=== PATIENT | male | born 1985 | race Caucasian/White ===

== ENCOUNTER → 2024-01-08 12:26 | Outpatient (CLI) | payer OTHER, SELFPAY ==
--- NOTE | 2024-01-08 | DI.CT.S_ITS ---
PROCEDURE: CT LUMBAR SPINE WO CON INDICATIONS: degenerative disc lumbar TECHNIQUE: Noncontrast 3 mm thick sections acquired from the T12 level to the sacrum. Sagittal and coronal reformats were constructed. For radiation dose reduction, the following was used: automated exposure control. COMPARISON: None. FINDINGS: Image quality: Excellent. Bones: Osteopenia. There is normal bony alignment. No acute vertebral body compression fractures. No suspicious lytic or blastic bony lesions. No pars defects. T12-L1: No severe bony central canal or foraminal stenosis. L1-L2: Small curvilinear disc osteophyte along the right paracentral disc (3/34). No severe bony central canal or foraminal stenosis. L2-L3: No severe bony central canal or foraminal stenosis. L3-L4: Mild central canal stenosis secondary to disc bulge and ligamentum flavum hypertrophy L4-L5: Mild central canal stenosis secondary to disc bulge and ligamentum flavum hypertrophy. Mild bilateral foraminal stenosis. L5-S1: Disc bulge with mild disc height loss. No severe central canal stenosis. Mild bilateral foraminal stenosis. Soft tissues: No retroperitoneal masses or hematomas. Visualized aorta is normal in caliber. Mild aortoiliac atherosclerosis. Right adrenal dystrophic calcifications, likely secondary to prior hemorrhage, infection, or trauma (4/8). IMPRESSION: 1. No severe bony central canal or foraminal stenosis. 2. Generalized osteopenia and aortic atherosclerosis, which are unexpected for the patient's age. The differential diagnosis is wide and would include underlying an underlying metabolic etiology. Correlation with serum markers for calcium, phosphate, and parathyroid hormone recommended. Dictated by: Charlie Rod M.D. on 01/08/2024 at 16:19 Approved by: Charlie Rod M.D. on 01/08/2024 at 16:38
== END ==
PROVIDERS: Referring Provider Nurse Practitioner Family; Visit Provider Nurse Practitioner Family
DX: M51.36 Other intervertebral disc degeneration, lumbar region (principal); I70.0 Atherosclerosis of aorta; M85.88 Other specified disorders of bone density and structure, other site
CPT/HCPCS: 72131

== ENCOUNTER 2024-07-09 07:56 | Emergency (ER) | payer OTHER, SELFPAY ==
[2024-07-09 08:06] VITALS: BP 186/124; PULSE 70; RESP 20; TEMP 37; O2SAT 100; BMI 69.0
--- NOTE | 2024-07-09 08:16 | PC.NURSE ---
Pt came to ED today because he was getting out of bed today and fell due to 8/10 sharp lumbar back pain that shoots down his left leg. Pt has chronic back pain issues, but states that it is getting worse and affecting his quality of life. Had spinal injections done in February 2024. Denies any numbness, tingling, loss of bowel/bladder control. Ambulates with steady gait. States that it is most comfortable for him to lay flat. A&Ox4.
--- NOTE | 2024-07-09 08:47 | DI.RAD.S_ITS ---
PROCEDURE: XR LUMBAR SPINE 2-3V INDICATIONS: back pain TECHNIQUE: 3 views of the lumbar spine were acquired. COMPARISON: [facility], CT, CT LUMBAR SPINE WO CON, 01/08/2024, 12:37. FINDINGS AND IMPRESSION: No acute vertebral body height loss or traumatic subluxation. Nonspecific heterogeneous appearance of the marrow space as before. No suspicious soft tissue calcifications. If there is high concern for further derangement, consider MRI evaluation. Dictated by: Ildefonso Mcmahan M.D. on 07/09/2024 at 9:03 Approved by: Ildefonso Mcmahan M.D. on 07/09/2024 at 9:05
[2024-07-09] MEDS: KETOROLAC 30 MG/ML VIAL 15 MG IV (09:06)
[2024-07-09] MEDS: HYDROMORPHONE 1 MG INJ IV (09:06)
[2024-07-09] MEDS: ONDANSETRON 4 MG/2 ML INJ IV (09:07)
--- NOTE | 2024-07-09 09:08 | ED.BACK ---
HPI - Back Pain/Injury General Chief Complaint: Back Pain/Injury Stated Complaint: Fell this morning lower back pain Time Seen by Provider: 07/09/24 08:28 Source: patient History of Present Illness HPI Narrative: Patient here with spouse. Complains of lower back pain. Does radiate to the left hip area. No loss of bowel bladder control. No incontinence or retention. No saddle paresthesia. No numbness tingling or weakness of the legs or feet. Patient was trying to get out of bed this morning and had back pain and he fell forward. Denies any injury from the fall. Patient over 10 years ago had L4-L5 diskectomy at [facility]. He has appointment with his neurosurgeon tomorrow by teleconference. Six months ago he did have MRI of the lower back. He did have epidural shot last fall as well. His recurrent lower back pain. In the past 3 weeks has had back pain without any injury or new events. No urinary changes. Blood pressure noted. Patient denies any fever chills. Is not on any immunosuppression. No history of diabetes. Related Data Previous Rx's Medication Instructions Recorded baclofen 20 mg tablet 20 mg PO TID PRN pain (scale score 07/09/24 4-6) #20 tabs ibuprofen 800 mg tablet 800 mg PO Q8H PRN pain #20 tabs 07/09/24 methylprednisolone 4 mg tablets in See Rx Instructions PO .COMPLEX 07/09/24 a dose pack (Medrol (Oscar)) #21 ea Allergies Allergy/AdvReac Type Severity Reaction Status Date / Time No Known Drug Allergies Allergy Verified 07/09/24 09:00 Review of Systems Review of Systems Narrative: GENERAL: Negative chills, fatigue, malaise, fever, sweats. HEENT: Negative sinus pain, ear pain, sore throat RESPIRATORY: Negative dyspnea, cough CARDIOVASCULAR: Negative chest pain, palpitations GASTROINTESTINAL: Negative vomiting, nausea, abdominal pain : Negative dysuria, frequency, hematuria MUSCULOSKELETAL: Positive back/muscle negative bony pain SKIN: Negative rash, skin lesions NEUROLOGIC: Negative weakness, numbness ROS Unobtainable: All systems reviewed & are unremarkable except as noted in HPI and below Patient History Social History Smoking Status: Never smoker Smoking Status: Never smoker Exam Narrative Exam Narrative: GENERAL: in no distress, not toxic not dyspneic HEAD: Normocephalic. EYES: Pupils equal round ENT: Mucous membranes moist. NECK: Trachea midline. CARDIOVASCULAR: Regular rate and rhythm RESPIRATORY: Clear to auscultation. Breath sounds equal bilaterally. No wheezes, rales, or rhonchi. GASTROINTESTINAL: Abdomen soft, non-tender EXTREMITIES: No gross deformities. BACK: No flank tenderness. There is reproducible bilateral paralumbar muscle tenderness. No midline tenderness or step-off. Increase straight leg raise on the left at 30?, on the right leg 45?. Strong bilateral patellar reflexes and ankle flexion-extension. Light touch intact to bilateral legs. Patient is able to log roll left and right in bed. NEURO: AOx4. Clear speech SKIN: Warm and dry PSYCH: Not anxious, is cooperative Initial Vital Signs Initial Vital Signs: Vital Signs Temperature 98.6 F 07/09/24 08:06 Pulse Rate 70 07/09/24 08:06 Respiratory Rate 20 07/09/24 08:06 Blood Pressure 186/124 H 07/09/24 08:06 Pulse Oximetry 100 07/09/24 08:06 Oxygen Delivery Method Room Air 07/09/24 08:06 Course Orders Ordered: Discontinued Medications Dexamethasone (Dexamethasone 10 Mg/Ml Vial) 10 mg IV NOW ONE Stop: 07/09/24 10:24 Last Admin: 07/09/24 10:31 Dose: 10 mg Documented By: LINDA Hydromorphone HCl (Hydromorphone 1 Mg Inj) 1 mg IV NOW ONE Stop: 07/09/24 08:47 Last Admin: 07/09/24 09:06 Dose: 1 mg Documented By: LINDA Ketorolac Tromethamine (Ketorolac 30 Mg/Ml Vial) 15 mg IV NOW ONE Stop: 07/09/24 08:47 Last Admin: 07/09/24 09:06 Dose: 15 mg Documented By: LINDA Ondansetron HCl (Ondansetron 4 Mg/2 Ml Inj) 4 mg IV NOW ONE Stop: 07/09/24 08:47 Last Admin: 07/09/24 09:07 Dose: 4 mg Documented By: LINDA Vital Signs Vital signs: Vital Signs - 8 hr 07/09/24 08:06 07/09/24 10:09 07/09/24 10:10 Temperature 98.6 F Pulse Rate 70 Respiratory Rate 20 Blood Pressure 186/124 H 149/96 H Pulse Oximetry 100 100 Oxygen Delivery Method Room Air 07/09/24 10:10 Temperature Pulse Rate 72 Respiratory Rate Blood Pressure Pulse Oximetry 99 Oxygen Delivery Method [facility] - Back Pain/Injury Imaging Data X-ray lumbar spine: Radiologist's Impression: [address] [address] XRay Report Signed Patient: Raymond Engel Jr MR#: [id number] : 1985 Acct:[id number] Age/Sex: 39 / M Date of Service: 07/09/24 Loc: ED Accession Number: [id number] Procedure: XR lumbar spine 2-3V Ordering Provider: Robert Anton MD PROCEDURE: XR LUMBAR SPINE 2-3V INDICATIONS: back pain TECHNIQUE: 3 views of the lumbar spine were acquired. COMPARISON: [facility], CT, CT LUMBAR SPINE WO CON, 01/08/2024, 12:37. FINDINGS AND IMPRESSION: No acute vertebral body height loss or traumatic subluxation. Nonspecific heterogeneous appearance of the marrow space as before. No suspicious soft tissue calcifications. If there is high concern for further derangement, consider MRI evaluation. Dictated by: Ildefonso Mcmahan M.D. on 07/09/2024 at 9:03 Approved by: Ildefonso Mcmahan M.D. on 07/09/2024 at 9:05 [facility] Narrative Medical decision making narrative: Patient here with spouse. Complains of lower back pain. Does radiate to the left hip area. No loss of bowel bladder control. No incontinence or retention. No saddle paresthesia. No numbness tingling or weakness of the legs or feet. Patient was trying to get out of bed this morning and had back pain and he fell forward. Denies any injury from the fall. Patient over 10 years ago had L4-L5 diskectomy at [facility]. He has appointment with his neurosurgeon tomorrow by teleconference. Six months ago he did have MRI of the lower back. He did have epidural shot last fall as well. His recurrent lower back pain. In the past 3 weeks has had back pain without any injury or new events. No urinary changes. Blood pressure noted. Patient denies any fever chills. Is not on any immunosuppression. No history of diabetes. After history and exam, no blood work indicated this time. X-ray of lumbar spine will be ordered. Toradol Dilaudid Zofran will be ordered [facility] Medical records reviewed: CT from January 08, 2024 of lumbar spine. Differential considered: Includes but not limited to cord compression cauda equina exacerbation chronic back pain low back strain herniated disc Imaging studies independently reviewed: X-ray lumbar spine no acute bony finding Consultations: None indicated at this time Treatments: Toradol Dilaudid Zofran Re-evaluations: Reviewed with patient and . I do not see an MRI from last year I do see CT imaging. 10:30 a.m.. Updated patient and and parents at bedside results. Pain is much better. He is able to raise his leg without pain. Return precautions reviewed. He will need outpatient MRI and physical therapy with his providers. Work note provided. Return precautions reviewed. Pain is controlled. They desire discharge home Discussion: Appropriate for discharge home exam is reassuring. Return precautions reviewed with patient and family. No MRI indicated this time. No neuro deficits. Return precautions reviewed patient and family. Work note provided. Pain is controlled. Prescriptions provided. They desire discharge home. Diagnosis: Acute exacerbation of chronic back pain Discharge Plan Departure Patient Disposition: Home Clinical Impression: Acute exacerbation of chronic low back pain Instructions: DI for Low Back Pain Activity Restrictions/Additional Instructions: No driving operating machine today as you have been given pain medication by IV. A steroid was also given by IV. Please continue steroid pack tomorrow. Prescriptions have been sent to your pharmacy to hand picker. See your neurosurgeon tomorrow as scheduled. Work note has been provided for you. Return if worse if any questions or concerns. You may need referral for physical therapy and MRI of your lower back by your family doctor or your surgeon. Prescriptions: New ibuprofen 800 mg tablet 800 mg PO Q8H PRN (Reason: pain) Qty: 20 0RF baclofen 20 mg tablet 20 mg PO TID PRN (Reason: pain (scale score 4-6)) Qty: 20 0RF methylprednisolone [Medrol (Oscar)] 4 mg tablets,dose pack See Rx Instructions .ROUTE .COMPLEX Qty: 21 0RF Rx Instructions: orally per package directions Stand Alone Forms: Patient Portal/API/Survey, Work Release Note
[2024-07-09 10:09] VITALS: O2SAT 100
[2024-07-09 10:10] VITALS: BP 149/96; PULSE 72; O2SAT 99
[2024-07-09] MEDS: DEXAMETHASONE 10 MG/ML VIAL IV (10:31)
[2024-07-09 10:43] VITALS: BP 153/104; PULSE 77; RESP 20; TEMP 37; O2SAT 100
== END 2024-07-09 10:46 | disposition home or self-care (01) ==
PROVIDERS: Emergency Provider Emergency Medicine
DX: M54.50 Low back pain, unspecified (principal); W19.XXXA Unspecified fall, initial encounter
CPT/HCPCS: 36415; 72100; 96374; 96375; 99284; J1100; J1171; J1885; J2405

== ENCOUNTER → 2024-07-23 07:05 | Outpatient (CLI) | payer OTHER, SELFPAY ==
--- NOTE | 2024-07-23 07:07 | DI.MRI.S_ITS ---
PROCEDURE: MR LUMBAR SPINE WO CON INDICATIONS: Neuritis. Pain in low back , left hip and left leg. TECHNIQUE: Noncontrast sagittal T1 spin echo and T2 fast echo, sagittal STIR, and T2 fast spin echo through the lumbar spine. In cases with scoliosis, additional coronal T2 fast spin echo may be performed. COMPARISON: [facility], CR, XR LUMBAR SPINE 2-3V, 07/09/2024, 8:44. [facility], CT, CT LUMBAR SPINE WO CON, 01/08/2024, 12:37. FINDINGS: Image quality: Excellent. Alignment and Curvature: There is normal bony alignment. Bone Marrow: Modic type 2 reactive endplate changes adjacent to the L3-L4 disc. No acute vertebral body compression fractures. Spinal Cord: Conus medullaris terminates at the L1 level. Visualized cord demonstrates normal signal and size. Paraspinous Soft Tissues: No paravertebral masses. T12-L1: Normal appearance. L1-L2: Slight loss of disc signal. Mild, diffuse disc bulge. No central stenosis. No neural foraminal narrowing. No neural compression. Fissure in the posterior annulus. L2-L3: Fissure in the posterior annulus. L3-L4: Loss of disc signal. Mild, diffuse disc bulge. Mild narrowing of the central canal. Mild bilateral neural foraminal narrowing. No neural compression. Fissure in the posterior annulus. L4-L5: Loss of disc signal. Mild, diffuse disc bulge. Central/left central moderate-sized disc extrusion. Extruded disc material extends inferiorly along the posterior margin of the L5 vertebral body to the level of the L5-S1 disc. Extruded disc material compresses the left L5 and left S1 nerve roots. Mild bilateral facet hypertrophy. Moderate narrowing of the central canal. Moderate bilateral neural foraminal narrowing.. L5-S1: Loss of disc signal. Mild, diffuse disc bulge. Mild bilateral facet hypertrophy. Mild narrowing of the central canal. Mild bilateral neural foraminal narrowing. No neural compression. Fissures in the anterior annulus. IMPRESSION: Multilevel degenerative disc disease and facet arthropathy. Moderate-sized central/left central L4-L5 disc extrusion. Extruded disc material compresses the left L5 and left S1 nerve roots. No severe central canal stenosis. No severe neural foraminal stenosis. Dictated by: Cary Alan MD, PhD on 07/23/2024 at 12:18 Approved by: Cary Alan MD, PhD on 07/23/2024 at 12:25
== END ==
PROVIDERS: Referring Provider Neurological Surgery; Visit Provider Physician Assistant
DX: M51.16 Intervertebral disc disorders with radiculopathy, lumbar region (principal); M47.26 Other spondylosis with radiculopathy, lumbar region; M51.17 Intervertebral disc disorders with radiculopathy, lumbosacral region; M47.27 Other spondylosis with radiculopathy, lumbosacral region
CPT/HCPCS: 72148